=== PATIENT | male | born 1955 | race Caucasian/White ===

== ENCOUNTER 2019-01-02 08:36 | Day surgery (SDC) | payer BC ==
[2019-01-02] MEDS ORDERED: PROPOFOL 10 MG/ML VIAL IV ONE (08:37)
[2019-01-02] MEDS ORDERED: LIDOCAINE 2% MDV (20MG/ML) 20ML VIAL IV ONE (08:37)
--- NOTE | 2019-01-03 08:50 | Operative Note ---
DATE OF SURGERY: 01/02/2019 OPERATION: COLONOSCOPY to the cecum with cold biopsy forceps polypectomy x1. INDICATION: Colorectal cancer screening. The patient's last examination was in 2008 and was unremarkable at that time. ANESTHESIA: Intravenous sedation was administered by the department of anesthesiology and included Diprivan titrated to effect. PROCEDURE: Following informed consent from this alert individual including a discussion of the risks and benefits of the procedure and an opportunity for the patient to ask questions, the patient was in the left lateral decubitus position. A digital rectal examination was performed. No abnormalities were noted. Following this, the Olympus [id number] video colonoscope was inserted into the rectum without resistance. The rectal mucosa had a normal appearance with normal folds and distensibility. The colonoscope was advanced up through the colon to the level of the cecum without much difficulty. Throughout the bowel the mucosa appeared normal, the folds were normal, and the bowel was fairly well distensible. The cecum was defined by noting the appendiceal orifice and ileocecal valve. Retroflexion in the cecum was endoscopically unremarkable. Overall, the colon preparation was good. From the base of the cecum, the colonoscope was then slowly withdrawn. No changes were noted until the rectum was reached. In the mid rectum, there was a diminutive 3 mm polyp noted which was removed with biopsy forceps. It is not clear at the time of this dictation if the specimen was actually recovered or not despite the biopsies obtained. Retroflexion in the rectum was endoscopically normal. The endoscope was straightened and removed. The patient tolerated the procedure well and was returned to the recovery area in stable condition. IMPRESSION: 1. Diminutive hyperplastic appearing polyp in the mid rectum removed with cold biopsy forceps. 2. Otherwise unremarkable colonoscopy to the cecum. RECOMMENDATIONS: Further recommendations will be forthcoming pending pathology obtained today if in fact the polyp tissue was recovered. Followup will otherwise be with eSven Vasquez DO. As always, thank you for allowing me to participate in the care of your patient. CC: Kathleen BERGMAN
== END 2019-01-02 10:25 | disposition home or self-care (01) ==
LOC: HOP 08:36
PROVIDERS: ATTEND Internal Medicine Gastroenterology
DX: Z12.11 Encounter for screening for malignant neoplasm of colon (principal); K62.1 Rectal polyp

== ENCOUNTER 2019-03-03 15:22 | Emergency (ER) | payer BC ==
[2019-03-03] MEDS ORDERED: KETOROLAC 30 MG/ML VIAL IVP ONE (15:31)
[2019-03-03 16:06] LABS: URINE BILIRUBIN NEGATIVE (NEGATIVE); URINE BLOOD LARGE (NEGATIVE); URINE COLOR YELLOW; URINE GLUCOSE (UA) NEGATIVE (NEGATIVE); URINE KETONE 40 mg/dL (NEGATIVE); URINE LEUKOCYTE ESTERASE NEGATIVE (NEGATIVE); URINE NITRITE NEGATIVE (NEGATIVE); URINE PROTEIN TRACE (NEGATIVE); URINE UROBILINOGEN 0.2 E.U./dL (0.20 - 1.00)
[2019-03-03 16:07] LABS: URINE APPEARANCE CLOUDY
[2019-03-03 16:12] LABS: URINE EPITHELIAL CELLS NONE SEEN (FEW); URINE RBC >50 (NONE SEEN); URINE WBC NONE SEEN (0-2/hpf)
[2019-03-03 16:13] LABS: URINE AMORPHOUS SEDIMENT 2+
--- NOTE | 2019-03-03 21:21 | Emergency Department Record ---
History of Present Illness - General Chief Complaint: Abdominal Pain Stated Complaint: ABD PAIN Time Seen by Provider: 03/03/19 15:30 Source: Patient, Family () Mode of Arrival: Ambulatory Limitations: No limitations - History of Present Illness Initial Comments: Pt with with 3 hour hx of pain to the left flank radiating into the left testicle. "Aching" pain. Feels urge to urinate but unable to pass much urine. No blood in urine. No hx of similar. No fever, no pain with urination. Bedias fine this AM prior to onset. No trauma. Associates nausea and vomiting with onset of pain. No DM. MD Complaint: Flank pain Onset/Timin -: Hour(s) Location: L Flank, LLQ Radiation: Other (left testicle) Severity: Moderate Severity scale (1-10): 6 Quality: Aching Consistency: Constant Improves With: Nothing Worsens With: Nothing Associated Symptoms: Nausea, Vomiting - Related Data Previous Rx's Medication Instructions Recorded Ibuprofen [Motrin] 800 mg PO Q8H PRN 5 Days #40 tab 03/03/19 Sulfamethoxazole/Trimethoprim 1 each PO BID 5 Days #10 tablet 03/03/19 [Bactrim Ds Tablet] Allergies Allergy/AdvReac Type Severity Reaction Status Date / Time azithromycin Allergy Intermediate Unverified 03/03/19 14:59 Penicillins Allergy Intermediate HIVES Unverified 03/03/19 14:59 Review of Systems Constitutional: Denies: Chills, Fever, Night sweats Eyes: Denies: Eye discharge, Photophobia ENT: Denies: Congestion, Dental pain, Ear pain Respiratory: Denies: Cough, Dyspnea Cardiovascular: Denies: Chest pain Endocrine: Denies: Fatigue Gastrointestinal: Reports: As per HPI, Nausea, Vomiting. Denies: Diarrhea Genitourinary: Reports: As per HPI, Testicular pain, Urgency. Denies: Hematuria Musculoskeletal: Denies: Back pain Skin: Denies: Bruising Neurological: Denies: Abnormal gait, Headache Psychiatric: Denies: Anxiety Hematological/Lymphatic: Denies: Anemia Past Medical History - SOCIAL HISTORY Smoking Status: Never smoker - RESPIRATORY Hx Respiratory Disorders: No - CARDIOVASCULAR Hx Cardio Disorders: No - NEURO Hx Neuro Disorders: No - GI Hx GI Disorders: No - Hx Genitourinary Disorders: No - ENDOCRINE Hx Endocrine Disorders: No - MUSCULOSKELETAL Hx Musculoskeletal Disorders: No - PSYCH Hx Psych Problems: No - HEMATOLOGY/ONCOLOGY Hx Hematology/Oncology Disorders: No Physical Exam - General General Appearance: Alert, Oriented x3, Cooperative, No acute distress - Head Head exam: Normal inspection - Eye Eye exam: Normal appearance, PERRL - ENT ENT exam: Mucous membranes moist, Normal orophraynx Ear exam: Normal external inspection Nasal Exam: Normal inspection - Neck Neck exam: Normal inspection. negative: Tenderness - Respiratory Respiratory exam: Normal lung sounds bilaterally. negative: Accessory muscle use, Respiratory distress, Rhonchi - Cardiovascular Cardiovascular Exam: Regular rate, Normal rhythm, Normal heart sounds - GI/Abdominal GI/Abdominal exam: Soft, Normal bowel sounds. negative: Distended, Guarding, Hernia, Rebound, Rigid, Tenderness - Extremities Extremities exam: Normal inspection, Full ROM. negative: Tenderness - Neurological Neurological exam: Alert, Normal gait, Oriented X3 - Psychiatric Psychiatric exam: Normal affect, Normal mood - Skin Skin exam: Normal color. negative: Rash Course - Reevaluation(s) Reevaluation #1: 03/03/19 16:[address] Toradol given and pt urinated in urinal - pain is GONE. UA with large blood and CT with UVJ stone 3.8 x 2.7mm and hydronephrosis. Pt remains painfree. We discussed home care with Antibiotic for 5 days and Motrin if pain. Will see family doc for follow up and retrun to the ED if recurrent pain or issues. Pt and agree and understand. Medical Decision Making - Data Complexity MDM Data: Labs Ordered and/or Reviewed, X-Ray Ordered and/or Reviewed Disposition Disposition: Discharge Clinical Impression: Renal lithiasis Disposition: Home, Self-Care Condition: (1) Good Instructions: Kidney Stones (ED), How to Strain Your Urine (ED) Additional Instructions: Take meds as instructed. Strain your urine. Family doc follow up return tot he ED as needed. Prescriptions: Sulfamethoxazole/Trimethoprim [Bactrim Ds Tablet] 1 each PO BID 5 Days #10 tablet Ibuprofen [Motrin] 800 mg PO Q8H PRN 5 Days #40 tab PRN Reason: Pain - Mod To Severe (5-10) Forms: Patient Portal Access Quality - Quality Measures Quality Measures: N/A - Blood Pressure Screening Does Patient Have Any of the Following: No Blood Pressure Classification: Hypertensive Reading Systolic Measurement: 193 Diastolic Measurement: 99 Screening for High Blood Pressure: < Pre-Hypertensive BP, F/U Documented > [G8950] Pre-Hypertensive Follow-up Interventions: Follow-up with rescreen every year.
--- NOTE | 2019-03-06 20:48 | CT SCAN REPORT ---
EXAM: CT SCAN ABDOMEN/PELVIS WO CONTRAST HISTORY: LEFT PELVIC/INGUINAL PAIN WITH NAUSEA, VOMITING, AND DECREASED URINE OUTPUT. TECHNIQUE: Thin-collimation helical CT examination of the abdomen and pelvis is performed without oral or intravenous contrast administration. Lack of oral and IV contrast utilization limits evaluation of the bowel and solid viscera, respectively. Additional prone imaging through the pelvis urinary bladder was also performed. COMPARISON: Two-view radiographic examination of the lumbar spine dated 10/08/2011. FINDINGS: Mild dependent atelectasis is demonstrated in each lung base. Minor linear scarring vs. atelectasis is demonstrated within the anterior lung bases. The visualized lung bases are otherwise clear. No pleural or pericardial effusion. The heart is near the upper limits of normal in size. No focal abnormality is demonstrated within the liver, spleen, pancreas, nor adrenal glands. The gallbladder is unremarkable. No biliary ductal dilatation is seen. The kidneys are normal in size and position. A few tiny nonobstructing calculi are scattered within the right kidney. There is a 2.4 mm nonobstructing calculus in the mid left kidney. There may be a couple tiny nonobstructing calculi also within the lower pole of the left kidney. No other nephrolithiasis nor renal mass. There is mild to moderate left hydroureteronephrosis down to the vesicoureteral junction, where an obstructing calculus projects into the bladder lumen. This measures approximately 3.8 x 2.7 mm. This does not move with prone imaging. There is associated left perinephric fat stranding and mild stranding about the proximal left ureter. This likely relates to caliceal rupture/reactive change with infection less likely. The right renal collecting system is normal in appearance. No intraabdominal nor retroperitoneal lymphadenopathy. There is minimal atherosclerosis without aneurysmal dilatation of the abdominal aorta nor iliac arteries. No pelvic mass nor adenopathy is seen. No free pelvic fluid. No other urinary bladder abnormality is identified. There is mild fat-density prominence in the left inguinal canal consistent with spermatic cord lipoma or fat within a small left inguinal hernia sac. No gross bowel dilatation nor bowel wall thickening. The appendix is visualized and normal in appearance. A tiny fat-filled umbilical hernia is present. The abdominal wall is otherwise intact. No lytic bone lesion is seen. There are degenerative changes scattered throughout the visualized spine. These are most pronounced at the lumbosacral junction, where they are moderate to advanced. Moderate to severe bilateral neural foraminal narrowing is suggested at this level. There is a subtle area of sclerosis involving the right inferior pubic ramus. This measures 13 x 8 mm. The etiology is uncertain. This area is not included on the prior radiographic examination. This may represent a bone island or a posttraumatic change. A blastic neoplastic process, though not excluded, is unlikely. IMPRESSION: 1. A 3.8 X 2.7 MM OBSTRUCTING CALCULUS IN THE LEFT VESICOURETERAL JUNCTION WITH THE CALCULUS PROJECTING INTO THE BLADDER LUMEN. THIS CAUSES MODERATE LEFT HYDROURETERONEPHROSIS WITH PERINEPHRIC FAT STRANDING AND PROXIMAL PERIURETRAL FAT STRANDING. 2. BILATERAL NEPHROLITHIASIS. 3. NORMAL APPENDIX. 4. MILD FAT-DENSITY PROMINENCE IN THE LEFT INGUINAL CANAL, DISCUSSED ABOVE. 5. SUBTLE AREA OF SCLEROSIS WITHIN THE RIGHT INFERIOR PUBIC RAMUS, DISCUSSED ABOVE. JOB NUMBER: [id number] MTDD
== END 2019-03-03 16:33 | disposition home or self-care (01) ==
LOC: ER 15:22
DX: N13.2 Hydronephrosis with renal and ureteral calculous obstruction (principal); R11.2 Nausea with vomiting, unspecified
CPT/HCPCS: 74176; 81001; 96374; 99283; J1885